=== PATIENT | male | born 1975 | race Caucasian/White ===

== ENCOUNTER 2017-04-20 19:56 | Emergency (ER) | payer OTHER ==
[2017-04-20] MEDS ORDERED: Dicyclomine 10 MG Cap PO ONE (21:21)
--- NOTE | 2017-04-20 21:24 | EDM.PDOC ---
ED HPI GENERAL MEDICAL PROBLEM - General Chief Complaint: Abdominal Pain Stated Complaint: CONSTIPATION Time Seen by Provider: 04/20/17 20:15 Source of Information: Reports: Patient, RN Notes Reviewed - History of Present Illness INITIAL COMMENTS - FREE TEXT/NARRATIVE: 42-year-old male comes in with upper and mid abdominal pain and cramping. He has been constipated for the last several days. His last BM was about 2 or 3 days ago. He states that he did suffer what sounds like mild heart attack about 63 weeks ago. He has been started on several new meds appropriate for that condition he has developed difficulty with constipation. He states he has never had a difficulty in the past. He started taking "he elax" last evening with multiple doses again today. This afternoon about 56 hours ago he did start developing mid and upper abdominal cramping which has been intermittent in nature but worsening in severity. And is to have no BM. States the only thing that helps him feel better is to "make himself vomit". Fever chills. No prior abdominal surgeries. No history of gallbladder problems. Pain does not radiate to his back. Bilateral Lower Abdomen Pain Score (Numeric/FACES): 6 - Related Data Allergies Allergy/AdvReac Type Severity Reaction Status Date / Time No Known Allergies Allergy Verified 04/20/17 20:12 Home Meds: Home Meds Aspirin 81 mg PO DAILY 04/20/17 [History] Clopidogrel [Plavix] 75 mg PO DAILY 04/20/17 [History] Dicyclomine HCl [Bentyl] 10 mg PO QID PRN #10 capsule 04/20/17 [Rx] Lisinopril 2.5 mg PO DAILY 04/20/17 [History] Metoprolol Succinate [Toprol XL] 12.5 mg PO DAILY 04/20/17 [History] atorvaSTATin [Lipitor] 80 mg PO BEDTIME 04/20/17 [History] Past Medical History Cardiovascular History: Reports: OR, Stents - Past Surgical History Cardiovascular Surgical History: Reports: Coronary Artery Stent Social & Family History - Tobacco Use Smoking Status *Q: Former Smoker Used Tobacco, but Quit: Yes Month Tobacco Last Used: March 2017 Second Hand Smoke Exposure: No - Caffeine Use Caffeine Use: Reports: Coffee - Recreational Drug Use Recreational Drug Use: No ED ROS GENERAL - Review of Systems Review Of Systems: See Below Constitutional: Denies: Fever, Chills, Diaphoresis HEENT: Reports: No Symptoms Respiratory: Denies: Shortness of Breath, Pleuritic Chest Pain Cardiovascular: Denies: Chest Pain GI/Abdominal: Reports: Abdominal Pain, Constipation, Vomiting (Patient has made himself vomit twice today). Denies: Diarrhea : Reports: No Symptoms Musculoskeletal: Reports: No Symptoms Skin: Reports: No Symptoms Neurological: Reports: No Symptoms ED EXAM, GI/ABD - Physical Exam Exam: See Below General Appearance: Alert, Mild Distress Throat/Mouth: Normal Inspection Neck: Supple Respiratory/Chest: No Respiratory Distress, Lungs Clear, Normal Breath Sounds Cardiovascular: Regular Rate, Rhythm GI/Abdominal Exam: Tender (Mid and upper mid abdomen), Other (Lower abdomen completely soft and nontender). No: Guarding, Rebound Back Exam: No: CVA Tenderness (L), CVA Tenderness (R) Extremities: Normal Inspection, Normal Range of Motion Neurological: Alert, No Motor/Sensory Deficits Skin Exam: Warm, Dry, Normal Color Course - Vital Signs Last Recorded V/S: Last Vital Signs Temp 97.2 F 04/20/17 20:08 Pulse 73 04/20/17 20:08 Resp 18 04/20/17 20:08 BP 148/102 H 04/20/17 20:08 Pulse Ox 100 04/20/17 20:08 - Orders/Labs/Meds Orders: Active Orders 24 hr Category Date Time Status Abdomen 2V AP Flat Upright [CR] Stat Exams 04/20/17 20:30 Taken CBC WITH AUTO DIFF [HEME] Stat Lab 04/20/17 20:43 Results Labs: Laboratory Tests 04/20/17 04/20/17 Range/Units 20:43 20:43 WBC 16.04 H (4.23-9.07) K/mm3 RBC 4.78 (4.63-6.08) M/mm3 Hgb 15.0 (13.7-17.5) gm/L Hct 42.3 (40.1-51.0) % MCV 88.5 (79.0-92.2) fl MCH 31.4 (25.7-32.2) pg MCHC 35.5 (32.2-35.5) g/dl RDW Std Deviation 38.6 (35.1-43.9) fL Plt Count 276 (163-337) K/mm3 MPV 8.8 L (9.4-12.3) fl Neut % (Auto) 78.4 H (34.0-67.9) % Lymph % (Auto) 10.5 L (21.8-53.1) % [place] % (Auto) 10.2 (5.3-12.2) % Eos % (Auto) 0.6 L (0.8-7.0) Baso % (Auto) 0.1 (0.1-1.2) % Neut # (Auto) 12.57 H (1.78-5.38) K/mm3 Lymph # (Auto) 1.69 (1.32-3.57) K/mm3 [place] # (Auto) 1.63 H (0.30-0.82) K/mm3 Eos # (Auto) 0.10 (0.04-0.54) K/mm3 Baso # (Auto) 0.01 (0.01-0.08) K/mm3 Sodium 131 L (136-145) mEq/L Potassium 3.7 (3.5-5.1) mEq/L Chloride 94 L (98-107) mEq/L Carbon Dioxide 27 (21-32) mEq/L Anion Gap 13.7 (5-15) BUN 9 (7-18) mg/dL Creatinine 0.9 (0.7-1.3) mg/dL Est Cr Clr Drug Dosing 99.97 mL/min Estimated GFR (MDRD) > 60 (>60) mL/min BUN/Creatinine Ratio 10.0 L (14-18) Glucose 118 H (74-106) mg/dL Calcium 8.9 (8.5-10.1) mg/dL Total Bilirubin 0.8 (0.2-1.0) mg/dL AST 32 (15-37) U/L ALT 117 H (16-63) U/L Alkaline Phosphatase 127 H (46-116) U/L Total Protein 7.3 (6.4-8.2) g/dl Albumin 3.4 (3.4-5.0) g/dl Globulin 3.9 gm/dL Albumin/Globulin Ratio 0.9 L (1-2) Lipase 360 (73-393) U/L Meds: Medications Discontinued Medications Generic Name Dose Route Start Last Admin Trade Name Freq PRN Reason Stop Dose Admin Dicyclomine HCl 10 mg 01/16/18 21:21 Bentyl PO 04/20/17 21:22 ONETIME ONE - Re-Assessments/Exams Free Text/Narrative Re-Assessment/Exam: 04/20/17 21:33 X-rays do show somewhat increased stool in the colon and throughout the abdomen , no air-fluid levels visible. Chemistries are relatively normal, bilirubin is normal. WBC is elevated at 16,000. AST and ALT very slightly elevated. Lipase normal. He does have the known constipation problem, will continue to work on that, if sx do not resolve as expected than he will needed further work up. Discharge instr. as documented. Departure - Departure Time of Disposition: 21:31 Disposition: Home, Self-Care 01 Condition: Fair Clinical Impression: Abdominal pain Qualifiers: Abdominal location: upper abdomen, unspecified Qualified Code(s): R10.10 - Upper abdominal pain, unspecified Constipation Qualifiers: Constipation type: unspecified constipation type Qualified Code(s): K59.00 - Constipation, unspecified - Discharge Information Prescriptions: Dicyclomine HCl [Bentyl] 10 mg PO QID PRN #10 capsule PRN Reason: Abdominal Pain Instructions: Constipation, Adult, [id number], Abdominal Pain, Adult, Easy-to -Read Referrals: PCP,Not In Area [Primary Care Provider] - Forms: ED Department Discharge Additional Instructions: Clear liquids until abdominal pain and cramping resolves, and given a dose of Bentyl 10 mg while here in the ED, you may continue that every 6 hours until pain and cramping has resolved, cotton picker a fleets enema this evening, use that as directed on label instructions, that should help you empty out your colon, abdominal pain and cramping should then get much better over the next 3-4 hours. Follow-up clinic as needed if symptoms not resolving as expected, return to ED if symptoms worsening in any way. Be sure to drink plenty of water, high fiber diet as tolerated, miralax once or twice daily as needed for further constipation. - My Orders Last 24 Hours: My Active Orders 04/20/17 20:30 Abdomen 2V AP Flat Upright [CR] Stat 04/20/17 20:43 CBC WITH AUTO DIFF [HEME] Stat - Assessment/Plan Last 24 Hours: My Active Orders 04/20/17 20:30 Abdomen 2V AP Flat Upright [CR] Stat 04/20/17 20:43 CBC WITH AUTO DIFF [HEME] Stat
--- NOTE | 2017-04-21 06:48 | CR ---
Abdomen: Supine and upright views of the abdomen were obtained. Bowel gas pattern appears within normal limits. No free air is seen. Coronary artery stent is identified. Bony structures are within normal limits. Calcifications are seen within the pelvis compatible with phleboliths. Impression: 1. Incidental findings. Diagnostic code #2
== END 2017-04-20 21:37 | disposition home or self-care (01) ==
LOC: JD.ED 19:56
DX: K59.00 Constipation, unspecified (principal); Z79.82 Long term (current) use of aspirin; Z79.899 Other long term (current) drug therapy; Z87.891 Personal history of nicotine dependence
CPT/HCPCS: 36415; 74019; 80053; 83690; 85025; 99284; A9270; 99283